=== PATIENT | male | born 1950 | race Caucasian/White ===

== ENCOUNTER 2019-07-19 13:39 | Inpatient (IN) | payer OTHER ==
[~2019-07-19] VITALS: Ht 180.3 cm; Wt 76.2 kg
--- NOTE | 2019-07-19 13:44 | NUR ---
CENTRAL LINE BEING PLACED AT THIS TIME BY DR RAMOS.
--- NOTE | 2019-07-19 14:09 | NUR ---
RAD AT BEDSIDE
[2019-07-19] MEDS ORDERED: NOREPINEPHRINE 8 MG in SODIUM CHLORIDE 0.9% 242 ML IV SCH (14:11)
[2019-07-19] MEDS ORDERED: SODIUM CHLORIDE FLUSH 10ML SYR IVF ONE (14:30)
--- NOTE | 2019-07-19 14:30 | NUR ---
LABS AND CULTURES COLLECTED. REQUEST TO PHARM SENT FOR ADDITIONAL BAG OF LEVO.
--- NOTE | 2019-07-19 14:40 | NUR ---
NEW BAG OF LEVO AMINISTERED AT THIS TIME. PT WORK OF BREATHING APPEARS TO BE INCREASING. SATS AT 90%, O2 INCREASED TO 6L. BHREATHING MORE RAPIDLY AND BP DOWN. MD TO BE UPDATED.
[2019-07-19 14:41] LABS: MEAN CORPUSCULAR HEMOGLOBIN 29.3 pg (27.5-34.5); MEAN CORPUSCULAR HGB CONC 33.4 g/dL (33.2-36.2); MEAN CORPUSCULAR VOLUME 87.7 fL (81-97); MEAN PLATELET VOLUME 10.7 fL (7.4-10.4); PLATELET COUNT 117 x10^3/uL (130-400); RED BLOOD COUNT 5.73 x10^6/uL (4.38-5.82); RED CELL DISTRIBUTION WIDTH 17.5 % (9.4-14.8)
[2019-07-19 14:48] LABS: ALANINE AMINOTRANSFERASE 52 U/L (12-78); ALBUMIN 1.9 g/dL (3.4-5.0); ANION GAP 13 mmol/L (5-15); CALCIUM 7.4 mg/dL (8.5-10.1); CHLORIDE 108 mmol/L (98-107)
--- NOTE | 2019-07-19 14:50 | NUR ---
TECH AT BEDSIDE FOR EKG
[2019-07-19 14:51] LABS: MD YES
[2019-07-19 14:52] LABS: ALKALINE PHOSPHATASE 50 U/L (45-117); BILIRUBIN,TOTAL 6.9 mg/dL (0.2-1.0); CREATININE 1.15 mg/dL (0.7-1.3); TOTAL PROTEIN 4.9 g/dL (6.4-8.2)
[2019-07-19] MEDS ORDERED: OMEPRAZOLE (15:23)
[2019-07-19] MEDS ORDERED: LACTULOSE (15:23)
[2019-07-19] MEDS ORDERED: FUROSEMIDE (15:23)
[2019-07-19] MEDS ORDERED: PROPRANOLOL (15:23)
[2019-07-19] MEDS ORDERED: SPIRONOLACTONE (15:23)
--- NOTE | 2019-07-19 15:24 | NUR ---
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 DISCUSSED WITH PT SUPPOSED TO HAVE 2250ML TOTAL, 250ML REMAINING.
[2019-07-19 15:30] LABS: BANDS%(MANUAL) 50 % (0-7); LYMPHS% (MANUAL) 3 % (22-44); METAMYELOCYTES# (MANUAL) 1.34 x10^3/uL (0-0); METAMYELOCYTES% (MANUAL) 5 % (0-1); MONOS#(MANUAL) 0.54 x10^3/uL (0.3-2.7); MONOS% (MANUAL) 2 % (2-9); MYELOCYTES# (MANUAL) 0.54 x10^3/uL (0-0); MYELOCYTES% (MANUAL) 2 % (0-0); REACTIVE LYMPHS # (MANUAL) 0.27 x10^3/uL (0-0); REACTIVE LYMPHS % (MANUAL) 1 % (0-0); SEG#(MANUAL) 9.92 x10^3/uL (1.8-6.8); SEGS% (MANUAL) 37 % (42-75)
[2019-07-19] MEDS ORDERED: SODIUM CHLORIDE 0.9%, 250ML IVBOLUS ONE (15:30)
[2019-07-19] MEDS ORDERED: D5%-LACTATED RINGERS 500ML IVBOLUS ONE (15:30)
[2019-07-19 15:36] LABS: ANISOCYTOSIS 1+; POLYCHROMASIA 1+
[2019-07-19 15:37] LABS: LARGE PLATELETS 1+
[2019-07-19 15:38] LABS: <PLATELET ESTIMATE> ADEQUATE
--- NOTE | 2019-07-19 15:41 | NUR ---
REPORT GIVEN TO SONNY HURTADO, PT READY FOR TRANSPORT. PT DRINKING JUICE AT THIS TIME FOR SUGAR OF 58 PER LABS.
[2019-07-19] MEDS ORDERED: NOREPINEPHRINE 8 MG in SODIUM CHLORIDE 0.9% 242 ML IV PRN (16:00)
[2019-07-19] MEDS ORDERED: SODIUM BICARBONATE 1 MEQ/ML, 50ML VIAL IVPush SCH (16:00)
[2019-07-19] MEDS ORDERED: SODIUM CHLORIDE 0.9% 1,000ML IVBOLUS ONE (16:00)
[2019-07-19] MEDS ORDERED: ENOXAPARIN 40 MG/0.4 ML SQ SCH (16:00)
[2019-07-19] MEDS ORDERED: ONDANSETRON 2MG/ML, 2ML IVPush PRN (16:00)
[2019-07-19] MEDS ORDERED: OXYcodone IR 5MG TABLET PO PRN (16:00)
[2019-07-19] MEDS ORDERED: BISACODYL 10 MG SUPP PR PRN (16:00)
[2019-07-19] MEDS ORDERED: POLYETHYLENE GLYCOL 17 GM PACKET PO PRN (16:00)
[2019-07-19] MEDS ORDERED: VASOPRESSIN 20 UNIT in SODIUM CHLORIDE 0.9% 99 ML IV PRN (16:00)
[2019-07-19] MEDS ORDERED: NOREPINEPHRINE 32 MG in SODIUM CHLORIDE 0.9% 218 ML IV PRN (16:22)
[2019-07-19] MEDS ORDERED: DEXTROSE 50%, 50ML SYRINGE IVPush STA (16:41)
[2019-07-19] MEDS: AMPICILLIN/SULBACTAM 3 GM in SODIUM CHLORIDE 0.9% 100 ML IV SCH ×2 (16:46→21:31)
[2019-07-19 17:02] LABS: TROPONIN I 0.028 ng/mL (0.000-0.045)
[2019-07-19] MEDS: ACETAMINOPHEN 325 MG TABLET PO PRN (17:06)
[2019-07-19 17:49] LABS: MICROSCOPIC NOT IND
[2019-07-19 17:53] LABS: CULTURE INDICATED? NO
[2019-07-19] MEDS: FAMOTIDINE 20 MG TABLET PO SCH (21:31)
[2019-07-19] MEDS: POTASSIUM CHLORIDE 10 MEQ in DEXTROSE 10% 1,000 ML IV SCH (22:41)
[2019-07-19 23:19] LABS: TROPONIN I 0.045 ng/mL (0.000-0.045)
[2019-07-20] MEDS ORDERED: NOREPINEPHRINE 32 MG in SODIUM CHLORIDE 0.9% 218 ML IV PRN (01:40)
[2019-07-20 04:00] VITALS: BP 112/65
[2019-07-20] MEDS: AMPICILLIN/SULBACTAM 3 GM in SODIUM CHLORIDE 0.9% 100 ML IV SCH ×4 (04:22→22:45)
[2019-07-20 04:55] LABS: ALBUMIN 1.8 g/dL (3.4-5.0); ANION GAP 12 mmol/L (5-15); CALCIUM 7.4 mg/dL (8.5-10.1); CHLORIDE 106 mmol/L (98-107)
[2019-07-20 04:58] LABS: ALANINE AMINOTRANSFERASE 79 U/L (12-78); ALKALINE PHOSPHATASE 64 U/L (45-117); BILIRUBIN,TOTAL 9.3 mg/dL (0.2-1.0); CREATININE 0.94 mg/dL (0.7-1.3)
[2019-07-20 05:47] LABS: MD YES; MEAN CORPUSCULAR HEMOGLOBIN 29.2 pg (27.5-34.5); MEAN CORPUSCULAR HGB CONC 32.9 g/dL (33.2-36.2); MEAN CORPUSCULAR VOLUME 88.7 fL (81-97); MEAN PLATELET VOLUME 11.1 fL (7.4-10.4); PLATELET COUNT 65 x10^3/uL (130-400); RED BLOOD COUNT 5.51 x10^6/uL (4.38-5.82); RED CELL DISTRIBUTION WIDTH 17.5 % (9.4-14.8)
[2019-07-20 05:51] LABS: ANISOCYTOSIS 1+; BAND#(MANUAL) 10.29 x10^3/uL; BANDS%(MANUAL) 30 % (0-7); LYMPH#(MANUAL) 1.72 x10^3/uL (1-3.4); LYMPHS% (MANUAL) 5 % (22-44); METAMYELOCYTES# (MANUAL) 5.15 x10^3/uL (0-0); METAMYELOCYTES% (MANUAL) 15 % (0-1); MONOS#(MANUAL) 1.03 x10^3/uL (0.3-2.7); MONOS% (MANUAL) 3 % (2-9); SEG#(MANUAL) 16.12 x10^3/uL (1.8-6.8); SEGS% (MANUAL) 47 % (42-75)
[2019-07-20 05:52] LABS: <PLATELET ESTIMATE> DECREASED; LARGE PLATELETS 1+
[2019-07-20 05:53] LABS: POLYCHROMASIA 1+
[2019-07-20] MEDS: SENNA/DOCUSATE TABLET PO SCH (10:45)
[2019-07-20] MEDS: FAMOTIDINE 20 MG TABLET PO SCH (10:45)
[2019-07-20] MEDS ORDERED: VANCOMYCIN PER PHARMACY MC PRN (13:00)
[2019-07-20] MEDS: MIDODRINE 5 MG TABLET PO SCH ×3 (13:00→22:45)
[2019-07-20] MEDS ORDERED: VANCOMYCIN 1,900 MG in SODIUM CHLORIDE 0.9% 250 ML IV ONE (13:30)
[2019-07-20] MEDS ORDERED: PHARMACOKINETIC CONSULTATION MC ONE (13:30)
[2019-07-20] MEDS ORDERED: PHARMACOKINETIC MONITORING MC PRN (13:30)
[2019-07-20 14:07] LABS: INTERNATIONAL NORMALIZED RATIO 1.74 (0.93-1.1); PROTHROMBIN TIME 18.6 Seconds (9.6-11.5)
[2019-07-20 15:01] LABS: D-DIMER (DIC) 16.82 ug/mlFEU (0.00-0.52); PROTIME 18.5 Seconds (9.6-11.5)
[2019-07-20] MEDS: ALBUMIN HUMAN 25% 100 ML IV SCH ×2 (16:26→22:46)
[2019-07-20] MEDS: POTASSIUM CHLORIDE 10 MEQ in DEXTROSE 10% 1,000 ML IV SCH (17:15)
[2019-07-20] MEDS: ACETAMINOPHEN 325 MG TABLET PO PRN (22:45)
[2019-07-21 04:00] VITALS: BP 86/59
[2019-07-21 04:22] LABS: ALBUMIN 2.3 g/dL (3.4-5.0); ANION GAP 6 mmol/L (5-15); CALCIUM 7.7 mg/dL (8.5-10.1); CHLORIDE 103 mmol/L (98-107)
[2019-07-21 04:26] LABS: ALANINE AMINOTRANSFERASE 67 U/L (12-78); ALKALINE PHOSPHATASE 71 U/L (45-117); BILIRUBIN,TOTAL 8.7 mg/dL (0.2-1.0); CREATININE 0.64 mg/dL (0.7-1.3); TOTAL PROTEIN 4.5 g/dL (6.4-8.2)
[2019-07-21 04:27] LABS: INTERNATIONAL NORMALIZED RATIO 1.45 (0.93-1.1); PROTHROMBIN TIME 15.4 Seconds (9.6-11.5)
[2019-07-21] MEDS: AMPICILLIN/SULBACTAM 3 GM in SODIUM CHLORIDE 0.9% 100 ML IV SCH ×4 (05:17→23:16)
[2019-07-21 06:56] LABS: MEAN CORPUSCULAR HEMOGLOBIN 29.8 pg (27.5-34.5); MEAN CORPUSCULAR HGB CONC 33.7 g/dL (33.2-36.2); MEAN CORPUSCULAR VOLUME 88.3 fL (81-97); RED CELL DISTRIBUTION WIDTH 17.6 % (9.4-14.8)
[2019-07-21 06:59] LABS: MEAN PLATELET VOLUME 10.5 fL (7.4-10.4)
[2019-07-21 07:00] LABS: PLATELET COUNT 29 x10^3/uL (130-400)
[2019-07-21 07:01] LABS: MD YES
[2019-07-21 07:03] LABS: BAND#(MANUAL) 0.98 x10^3/uL; BANDS%(MANUAL) 9 % (0-7); EOS#(MANUAL) 0.11 x10^3/uL (0.0-0.4); EOS% (MANUAL) 1 % (1-7); LYMPH#(MANUAL) 0.44 x10^3/uL (1-3.4); LYMPHS% (MANUAL) 4 % (22-44); MONOS#(MANUAL) 0.22 x10^3/uL (0.3-2.7); MONOS% (MANUAL) 2 % (2-9); SEG#(MANUAL) 9.16 x10^3/uL (1.8-6.8); SEGS% (MANUAL) 84 % (42-75)
[2019-07-21 07:04] LABS: <PLATELET ESTIMATE> DECREASED; ANISOCYTOSIS 1+; LARGE PLATELETS 1+; POLYCHROMASIA 1+
[2019-07-21 07:05] LABS: OVALOCYTES 1+
[2019-07-21] MEDS: SENNA/DOCUSATE TABLET PO SCH (08:01)
[2019-07-21] MEDS: MIDODRINE 5 MG TABLET PO SCH ×3 (08:01→21:32)
[2019-07-21] MEDS: ALBUMIN HUMAN 25% 100 ML IV SCH (08:02)
[2019-07-21] MEDS ORDERED: POTASSIUM CHLORIDE 20 MEQ TAB.ER.PRT PO ONE (08:30)
[2019-07-21] MEDS: VANCOMYCIN 1,500 MG in SODIUM CHLORIDE 0.9% 250 ML IV SCH (10:15)
[2019-07-21] MEDS ORDERED: VANCOMYCIN 1,500 MG in SODIUM CHLORIDE 0.9% 250 ML IV SCH (13:30)
[2019-07-21] MEDS: POTASSIUM CHLORIDE 10 MEQ in DEXTROSE 10% 1,000 ML IV SCH (14:51)
[2019-07-21 15:08] LABS: MEAN CORPUSCULAR HEMOGLOBIN 29.4 pg (27.5-34.5); MEAN CORPUSCULAR HGB CONC 33.3 g/dL (33.2-36.2); MEAN CORPUSCULAR VOLUME 88.4 fL (81-97); MEAN PLATELET VOLUME 10.3 fL (7.4-10.4); RED BLOOD COUNT 4.18 x10^6/uL (4.38-5.82)
[2019-07-21 15:12] LABS: MD YES; PLATELET COUNT 20 x10^3/uL (130-400)
[2019-07-21 15:17] LABS: BAND#(MANUAL) 1.14 x10^3/uL; BANDS%(MANUAL) 12 % (0-7); EOS#(MANUAL) 0.48 x10^3/uL (0.0-0.4); EOS% (MANUAL) 5 % (1-7); LYMPH#(MANUAL) 0.19 x10^3/uL (1-3.4); LYMPHS% (MANUAL) 2 % (22-44); MONOS#(MANUAL) 0.29 x10^3/uL (0.3-2.7); MONOS% (MANUAL) 3 % (2-9); SEG#(MANUAL) 7.41 x10^3/uL (1.8-6.8); SEGS% (MANUAL) 78 % (42-75)
[2019-07-21 15:18] LABS: ANISOCYTOSIS 1+
[2019-07-21 15:19] LABS: <PLATELET ESTIMATE> DECREASED; OVALOCYTES 1+; POLYCHROMASIA 1+
[2019-07-21 15:20] LABS: <PLT MORPHOLOGY> NORMAL PLT MORPH
[2019-07-21] MEDS ORDERED: ALBUTEROL SULFATE 2.5 MG/3 ML ONE (16:37)
[2019-07-21] MEDS ORDERED: ALBUTEROL SULFATE 2.5 MG/3 ML NPPB PRN (17:00)
[2019-07-21] MEDS: ALBUTEROL/IPRATROPIUM 2.5MG/0.5MG, 3 ML NPPB SCH (20:10)
[2019-07-21] MEDS: BUDESONIDE 0.5 MG/2 ML INHA INH SCH (20:10)
[2019-07-21] MEDS: LACTULOSE 20 GM/30 ML UDC PO SCH (21:32)
[2019-07-22] MEDS: ALBUTEROL/IPRATROPIUM 2.5MG/0.5MG, 3 ML NPPB SCH ×2 (03:14→09:00)
[2019-07-22] MEDS: VANCOMYCIN 1,500 MG in SODIUM CHLORIDE 0.9% 250 ML IV SCH (03:22)
[2019-07-22 03:48] LABS: ALANINE AMINOTRANSFERASE 59 U/L (12-78); ALBUMIN 2.4 g/dL (3.4-5.0); ANION GAP 4 mmol/L (5-15); CALCIUM 7.9 mg/dL (8.5-10.1); CHLORIDE 106 mmol/L (98-107); CREATININE 0.65 mg/dL (0.7-1.3)
[2019-07-22 03:50] LABS: ALKALINE PHOSPHATASE 99 U/L (45-117); BILIRUBIN,TOTAL 7.1 mg/dL (0.2-1.0); TOTAL PROTEIN 4.8 g/dL (6.4-8.2)
[2019-07-22 04:00] VITALS: BP 95/45
[2019-07-22] MEDS: AMPICILLIN/SULBACTAM 3 GM in SODIUM CHLORIDE 0.9% 100 ML IV SCH ×2 (05:13→11:00)
[2019-07-22] MEDS: MIDODRINE 5 MG TABLET PO SCH (08:27)
[2019-07-22] MEDS ORDERED: ALBUMIN HUMAN 25% 150 ML IV ONE (09:00)
[2019-07-22] MEDS: LACTULOSE 20 GM/30 ML UDC PO SCH (09:00)
[2019-07-22] MEDS: BUDESONIDE 0.5 MG/2 ML INHA INH SCH (09:00)
[2019-07-22] MEDS: SENNA/DOCUSATE TABLET PO SCH (09:00)
[2019-07-22] MEDS ORDERED: GUAIFENESIN/COD200MG-20MG/10ML LIQUID PO PRN (09:00)
[2019-07-22] MEDS ORDERED: LIDOCAINE 1%, 10ML ONE (09:04)
[2019-07-22 09:58] LABS: MEAN CORPUSCULAR HEMOGLOBIN 29.3 pg (27.5-34.5); MEAN CORPUSCULAR HGB CONC 33.4 g/dL (33.2-36.2); MEAN CORPUSCULAR VOLUME 87.7 fL (81-97); MEAN PLATELET VOLUME 10.5 fL (7.4-10.4); RED BLOOD COUNT 4.28 x10^6/uL (4.38-5.82); RED CELL DISTRIBUTION WIDTH 18.1 % (9.4-14.8)
[2019-07-22 09:59] LABS: MD YES; PLATELET COUNT 20 x10^3/uL (130-400)
[2019-07-22] MEDS: POTASSIUM CHLORIDE 10 MEQ in DEXTROSE 10% 1,000 ML IV SCH (10:00)
[2019-07-22 10:01] LABS: BAND#(MANUAL) 0.09 x10^3/uL; BANDS%(MANUAL) 1 % (0-7); EOS#(MANUAL) 0.47 x10^3/uL (0.0-0.4); EOS% (MANUAL) 5 % (1-7); LYMPH#(MANUAL) 0.47 x10^3/uL (1-3.4); LYMPHS% (MANUAL) 5 % (22-44); METAMYELOCYTES# (MANUAL) 0.09 x10^3/uL (0-0); METAMYELOCYTES% (MANUAL) 1 % (0-1); MONOS#(MANUAL) 1.02 x10^3/uL (0.3-2.7); MONOS% (MANUAL) 11 % (2-9); MYELOCYTES# (MANUAL) 0.09 x10^3/uL (0-0); MYELOCYTES% (MANUAL) 1 % (0-0); NRBC % (MANUAL) 1 % (0-1); SEG#(MANUAL) 7.07 x10^3/uL (1.8-6.8); SEGS% (MANUAL) 76 % (42-75)
[2019-07-22 10:02] LABS: <PLATELET ESTIMATE> DECREASED; <PLT MORPHOLOGY> NORMAL PLT MORPH; ANISOCYTOSIS 1+; OVALOCYTES 1+; PMNS WITH VACUOLES 1+; POLYCHROMASIA 1+
[2019-07-22] MEDS ORDERED: LORazepam 2 MG/ML, 1ML IVPush PRN (11:00)
[2019-07-22] MEDS ORDERED: SENNOSIDES 8.6 MG TABLET PO SCH (11:00)
[2019-07-22] MEDS ORDERED: ONDANSETRON 2MG/ML, 2ML IVPush PRN (11:00)
[2019-07-22] MEDS: LORazepam 2 MG/ML, 1ML IVPush PRN ×2 (14:23→20:48)
[2019-07-22] MEDS: MORPHINE SULFATE 4 MG/ML, 1ML IVPush PRN ×3 (14:23→22:45)
[2019-07-23] MEDS: LORazepam 2 MG/ML, 1ML IVPush PRN ×2 (01:07→05:23)
[2019-07-23] MEDS: MORPHINE SULFATE 4 MG/ML, 1ML IVPush PRN ×3 (01:07→05:23)
[2019-07-23] MEDS ORDERED: SCOPOLAMINE 1MG PATCH TD SCH (03:30)
== END 2019-07-23 11:14 | disposition expired | DRG 871 ==
LOC: ED 14:17 → EDIP 14:57 → ICU 15:57 → CCU 07-21 04:47 → 3N 07-22 15:35
PROVIDERS: ADMIT Internal Medicine; ATTEND Internal Medicine Infectious Disease
DX: A41.9 Sepsis, unspecified organism (principal); J96.01 Acute respiratory failure with hypoxia; R65.21 Severe sepsis with septic shock; E43 Unspecified severe protein-calorie malnutrition; J15.9 Unspecified bacterial pneumonia; J44.0 Chronic obstructive pulmonary disease with (acute) lower respiratory infection; J44.9 Chronic obstructive pulmonary disease, unspecified; E16.2 Hypoglycemia, unspecified; E86.0 Dehydration; E83.51 Hypocalcemia; F17.210 Nicotine dependence, cigarettes, uncomplicated; H40.9 Unspecified glaucoma; D69.6 Thrombocytopenia, unspecified; B19.20 Unspecified viral hepatitis C without hepatic coma; F32.9 Major depressive disorder, single episode, unspecified; K72.90 Hepatic failure, unspecified without coma; I27.20 Pulmonary hypertension, unspecified; Z03.818 Encounter for observation for suspected exposure to other biological agents ruled out; Z82.49 Family history of ischemic heart disease and other diseases of the circulatory system; Z79.899 Other long term (current) drug therapy
CPT/HCPCS: 36415; 36600; 84145; 99291; J3490; J7613; 71045; 76700; 80053; 81003; 82533; 82728; 82803; 82947; 82962; 83605; 83615; 83735; 83880; 84443; 84484; 85025; 85049; 85379; 85384; 85610; 85730; 86850; 86900; 87040; 87070; 87081; 87205; 93005; 93306; G0378; J0295; J1650; J2405; J3370; J3480; J7626; P9047; J2060; J2270; J7050